=== PATIENT | female | born 1975 | race Caucasian/White ===

== ENCOUNTER → 2017-02-13 09:21 | Outpatient (CLI) | payer MEDICAID ==
[2017-02-13 09:57] LABS: BASOPHILS 0.2 % (0-2); EOSINOPHILS 1.2 % (0-7); HEMATOCRIT 46.4 % (36.0-48.0); HEMOGLOBIN 15.5 g/dL (12-16); IMMATURE GRANULOCYTES 0.3 % (0-5); LYMPHOCYTES 28.6 % (15-50); MCHC 33.4 g/dL (31.0-37.0); MCV 86.9 fL (80.0-100.0); MEAN PLATELET VOLUME 9.5 fL (7.4-10.4); MONOCYTES 6.8 % (2-11); NEUTROPHILS 62.9 % (40-80); PLATELET COUNT 252 10x3/uL (130-400); RBC 5.34 10x6/uL (4.00-5.40); WBC 11.2 10x3/uL (4.8-10.8)
[2017-02-13 10:27] LABS: ALBUMIN 3.6 g/dL (3.4-5.0); ANION GAP 12.3 mmol/L (8-16); BILIRUBIN - TOTAL 0.3 mg/dL (0.2-1.3); CALCIUM 9.3 mg/dL (8.5-10.1); CARBON DIOXIDE 24.7 mmol/L (21.0-32.0); CHOL - HDL RATIO 4.7 ratio (2.3-4.1); CREATININE - SERUM 0.9 mg/dL (0.6-1.3); LDL-HDL RATIO 2.7 ratio (1.5-3.5); THYROID STIMULATING HORMONE 2.73 uIU/mL (0.36-3.74)
== END | disposition home or self-care (01) ==
LOC: D.LAB 08:00
PROVIDERS: Family Medicine
DX: R53.83 Other fatigue (principal); I10 Essential (primary) hypertension; E78.5 Hyperlipidemia, unspecified; F41.9 Anxiety disorder, unspecified

== ENCOUNTER → 2017-09-13 16:53 | Outpatient (CLI) | payer MEDICAID | END | disposition home or self-care (01) | LOC: D.MAMMO 14:15 | DX: Z12.31 Encounter for screening mammogram for malignant neoplasm of breast (principal) ==

== ENCOUNTER → 2017-10-28 10:05 | Outpatient (CLI) | payer MEDICAID | END | disposition home or self-care (01) | LOC: D.NM 10:05 | DX: M54.2 Cervicalgia (principal); M54.5 Low back pain ==

== ENCOUNTER → 2017-11-07 17:47 | Outpatient (CLI) | payer MEDICAID | END | disposition home or self-care (01) | LOC: D.MAMMO 10-14 13:30 → D.US 10-14 13:30 → D.MAMMO 13:30 | DX: R92.8 Other abnormal and inconclusive findings on diagnostic imaging of breast (principal) ==

== ENCOUNTER → 2019-08-20 09:08 | Outpatient (CLI) | payer MEDICAID ==
[2019-08-20 09:33] LABS: BASOPHILS 0.3 % (0-2); EOSINOPHILS 2.2 % (0-7); HEMATOCRIT 44.5 % (36.0-48.0); HEMOGLOBIN 14.6 g/dL (12-16); IMMATURE GRANULOCYTES 0.2 % (0-5); LYMPHOCYTES 33.4 % (15-50); MCHC 32.8 g/dL (31.0-37.0); MCV 88.3 fL (80.0-100.0); MONOCYTES 5.8 % (2-11); NEUTROPHILS 58.1 % (40-80); PLATELET COUNT 207 10x3/uL (130-400); RBC 5.04 10x6/uL (4.00-5.40); RDW 13.5 % (11.5-14.5); WBC 10.4 10x3/uL (4.8-10.8)
[2019-08-21 10:10] LABS: ANA REFLEX - DIRECT Negative (Negative)
== END | disposition home or self-care (01) ==
LOC: D.LAB 09:08
PROVIDERS: ATTEND Anesthesiology
DX: M62.81 Muscle weakness (generalized) (principal); R52 Pain, unspecified

== ENCOUNTER 2020-01-13 12:31 | Inpatient (IN) | payer MEDICAID ==
[~2020-01-13] VITALS: Ht 170.2 cm; Wt 95.3 kg
[2020-01-13] MEDS ORDERED: TENORMIN25 MG PO (13:08)
[2020-01-13] MEDS ORDERED: NEURONTIN600 MG PO (13:09)
[2020-01-13] MEDS ORDERED: PAXIL40 MG PO (13:09)
[2020-01-13] MEDS ORDERED: XANAX1 MG PO (13:10)
[2020-01-13] MEDS ORDERED: PERCOCET 7.5/321 TAB PO (13:10)
[2020-01-13 13:45] LABS: BASOPHILS 0.3 % (0-2); EOSINOPHILS 5.6 % (0-7); HEMATOCRIT 39.1 % (36.0-48.0); HEMOGLOBIN 12.2 g/dL (12-16); IMMATURE GRANULOCYTES 0.5 % (0-5); LYMPHOCYTES 35.8 % (15-50); MCH 26.7 pg (26.0-34.0); MCHC 31.2 g/dL (31.0-37.0); MCV 85.6 fL (80.0-100.0); MEAN PLATELET VOLUME 9.3 fL (7.4-10.4); MONOCYTES 6.7 % (2-11); NEUTROPHILS 51.1 % (40-80); PLATELET COUNT 244 10x3/uL (130-400); RBC 4.57 10x6/uL (4.00-5.40); RDW 14.3 % (11.5-14.5); WBC 9.9 10x3/uL (4.8-10.8)
[2020-01-13 13:54] LABS: CALC OSMOLALITY 280 mosm/kg (275-300); CALCIUM 8.4 mg/dL (8.5-10.1); CARBON DIOXIDE 26.9 mmol/L (21.0-32.0); CHLORIDE - SERUM 107 mmol/L (98-107); CREATININE - SERUM 0.5 mg/dL (0.6-1.3); GLUCOSE 121 mg/dL (74-106); POTASSIUM - SERUM 3.8 mmol/L (3.5-5.1); SODIUM 141 mmol/L (136-145); UREA NITROGEN 10 mg/dL (7-18); eGFR NON AFRICAN AMERICAN > 90 mL/min (90-120)
[2020-01-13 13:56] LABS: APTT 26.4 SECONDS (22.8-39.4); INR 0.94 (0.85-1.17); PROTIME 12.5 SECONDS (11.6-15.0)
[2020-01-13 13:57] LABS: D-DIMER-QUANTITATIVE 0.28 ug/mLFEU (0.20-0.54)
[2020-01-13 14:00] VITALS: BP 110/61
[2020-01-13 14:12] LABS: ALBUMIN 3.1 g/dL (3.4-5.0); ALKALINE PHOSPHATASE 82 U/L (30-120); ALT (SGPT) 24 U/L (10-68); BILIRUBIN - TOTAL 0.12 mg/dL (0.2-1.3); CKMB 0.8 U/L (0.0-3.6); CREATINE KINASE 48 UL (21-215); PRO BNP 85 pg/mL (0-125); PROTEIN - SERUM 6.8 g/dL (6.4-8.2); TROPONIN-I < 0.017 ng/mL (0.000-0.060)
[2020-01-13 14:52] VITALS: BP 125/75
[2020-01-13 15:43] LABS: C-REACTIVE PROTEIN 0.5 mg/dL (0.0-0.9)
--- NOTE | 2020-01-13 20:17 | NUR ---
REPORT GIVEN TO SATISH BALLARD.
--- NOTE | 2020-01-13 20:41 | NUR ---
I HAVE RECIVED THIS PATIENT FROM THE ER. PT IS A&O x4 NO SIGNS OR SYMPTOMS OF DISTRESS NOTED. RESPIRATIONS EVEN AND UNLABORED. ASSIST PT TO RESTROOM AND BACK TO BED. PT GAIT IS STEADY. PT ENCOUARGED TO CALL FOR HELP WHEN NEEDED AND WHEN GETTING TO AND FROM BED. CALL LIGHT WITH IN REACH. WILL CONTINUE TO MONITOR
[2020-01-13 20:50] VITALS: BP 113/58
[2020-01-14] MEDS ORDERED: AMITRIPTYLINE100 MG PO (00:09)
[2020-01-14 00:24] VITALS: BP 123/61
[2020-01-14 03:59] VITALS: BP 107/54
[2020-01-14 04:15] LABS: BASOPHILS 0.2 % (0-2); HEMATOCRIT 40.7 % (36.0-48.0); HEMOGLOBIN 12.6 g/dL (12-16); IMMATURE GRANULOCYTES 0.4 % (0-5); LYMPHOCYTES 33.6 % (15-50); MCH 26.3 pg (26.0-34.0); MEAN PLATELET VOLUME 9.3 fL (7.4-10.4); MONOCYTES 6.3 % (2-11); NEUTROPHILS 54.5 % (40-80); PLATELET COUNT 214 10x3/uL (130-400); RBC 4.79 10x6/uL (4.00-5.40); RDW 14.3 % (11.5-14.5); WBC 9.7 10x3/uL (4.8-10.8)
[2020-01-14 04:34] LABS: ALBUMIN 3.2 g/dL (3.4-5.0); ALKALINE PHOSPHATASE 89 U/L (30-120); ALT (SGPT) 27 U/L (10-68); BILIRUBIN - TOTAL 0.27 mg/dL (0.2-1.3); CALC OSMOLALITY 277 mosm/kg (275-300); CALCIUM 8.5 mg/dL (8.5-10.1); CARBON DIOXIDE 25.3 mmol/L (21.0-32.0); CHLORIDE - SERUM 105 mmol/L (98-107); GLUCOSE 99 mg/dL (74-106); PROTEIN - SERUM 6.9 g/dL (6.4-8.2); SODIUM 140 mmol/L (136-145); UREA NITROGEN 9 mg/dL (7-18)
--- NOTE | 2020-01-14 04:37 | NUR ---
PT RESTING IN BED WITH EYES CLOSED. EASILY AWAKEN WITH VOICE STIMULATION. NO SIGNS OF DISTRESS NOTED. RESPIRATIONS EVEN AND UNLABORED. PT HAS NO COMPLAINTS AT THIS TIME. CALL LIGHT WITH IN REACH AND BED IS IN LOWEST POSITION. PT REQUEST FOR PERSONAL PADS FOR MENSTRUAL. WILL CONTINUE TO MONITOR
[2020-01-14 04:42] LABS: CREATININE - SERUM 0.8 mg/dL (0.6-1.3); eGFR NON AFRICAN AMERICAN 83 mL/min (90-120)
[2020-01-14 06:05] VITALS: Ht 170.2 cm; Wt 95.3 kg
--- NOTE | 2020-01-14 06:06 | NUR ---
I have reviewed this patient and I concur with the Shift Assessment completed by the Licensed Practical Nurse today this shift.
[2020-01-14 09:03] VITALS: BP 139/92
--- NOTE | 2020-01-14 11:02 | NUR ---
Received Faxed Confirmation from Dr. Mendes's office COVID19 test negative from 01/11/2020. May remove from enhanced droplet isolation.
--- NOTE | 2020-01-14 12:43 | NUR ---
PT DISCHARGED HOME VIA WHEELCHAIR WITH FAMILY. PIV REMOVED WITH CATHETER TIP FULLY INTACT. PT SIGNED DISCHARGE INSTRUCTIONS AND REMOVED ALL VALUABLES FROM THE ROOM.
== END 2020-01-14 12:43 | disposition home or self-care (01) | DRG 193 ==
LOC: D.ER 12:31 → D.M2 16:41
PROVIDERS: Family Medicine; ADMIT Family Medicine; ATTEND Family Medicine
DX: J18.9 Pneumonia, unspecified organism (principal); J96.21 Acute and chronic respiratory failure with hypoxia; R00.0 Tachycardia, unspecified; M79.7 Fibromyalgia; F41.8 Other specified anxiety disorders; E66.9 Obesity, unspecified; Z68.36 Body mass index [BMI] 36.0-36.9, adult; G89.29 Other chronic pain; I10 Essential (primary) hypertension